=== PATIENT | female | born 1985 | race Caucasian/White ===

== ENCOUNTER 2022-10-25 06:32 | Emergency (ER) | payer OTHER, SELFPAY ==
[2022-10-25 07:10] VITALS: BP 125/81; PULSE 71; RESP 18; TEMP 36.8; O2SAT 100; BMI 25.7
--- NOTE | 2022-10-25 07:47 | ED.FEMALEGU ---
HPI - Female Genitourinary General Chief complaint: Urogenital-Female Stated complaint: pain in pelvic area thinks IUD shifted Time Seen by Provider: 10/25/22 07:27 Source: patient Mode of arrival: Ambulatory Limitations: no limitations History of Present Illness HPI Narrative: Patient is a 37-year-old healthy female, she awoke this morning with suprapubic pain extending into the pelvic floor, labia region. She has an IUD in place, the current 1 has been there for years. She would similar pain with her prior IUD. She is no pelvic discharge, no nausea, vomiting or diarrhea. She is no vaginal bleeding, she does not normally have menstrual cycles with the IUD in place. She denies dysuria. is seemingly quite unlikely. The pain does not radiate to her back. She is no chronic medical problems. She is no history of ovarian problems. She is on no prescription medications. Related Data Previous Rx's Medication Instructions Recorded doxycycline hyclate 100 mg capsule 100 mg PO BID 10 days #20 caps 10/25/22 tramadol 50 mg tablet 50 mg PO Q6H PRN pain #20 tabs 10/25/22 Allergies Allergy/AdvReac Type Severity Reaction Status Date / Time No Known Drug Allergies Allergy Verified 10/25/22 11:34 Review of Systems Review of Systems ROS Unobtainable: All systems reviewed & are unremarkable except as noted in HPI and below Constitutional Constitutional: Denies body ache(s), Denies chills, Denies fever(s) and Denies headache(s) ENT Ears, Nose, Mouth, and Throat: Denies headache(s) Cardiovascular Cardiovascular: Denies chest pain and Denies dyspnea Respiratory Respiratory: Denies cough and Denies dyspnea Genitourinary Genitourinary: Denies dysuria, Denies nocturia, Denies urinary urgency and Denies vaginal discharge Musculoskeletal Musculoskeletal: Denies back pain Integumentary/Breasts Skin/Breast: Denies rash Neurologic Neurologic: Denies headache(s) Patient History Medical History Healthy adult IUD (intrauterine device) in place Substance Use Type: does not use Exam Initial Vital Signs Initial Vital Signs: Vital Signs Temperature 98.3 F 10/25/22 07:10 Pulse Rate 71 10/25/22 07:10 Respiratory Rate 18 10/25/22 07:10 Blood Pressure 125/81 10/25/22 07:10 Pulse Oximetry 100 10/25/22 07:10 Oxygen Delivery Method Room Air 10/25/22 07:10 Const General: cooperative, healthy appearing and other (Appears uncomfortable) Nutritional Appearance: average body habitus [facility] Head: normocephalic and atraumatic GI Inspection: normal to inspection Palpation: soft, No guarding and tender (Mild suprapubic discomfort.) Auscultation: normal bowel sounds External Female Exam: normal external appearance Speculum Exam - Vagina: normal appearance of the vagina, abnormal vaginal discharge ( yellow, creamy cervical discharge.) and not erythematous Bimanual Exam- Vagina & Uterus: uterine size normal, cervical motion tenderness and tender Bimanual Exam- Adnexa, other: normal adnexae Other: IUD strings are seen at the cervical os. Back/Spine/Pelvis Back: No CVA tenderness Course Course Course Narrative: patient appears to have endometritis, seemingly associated with her IUD. STD is not likely. She is in a safe, monogamous relationship. Ultrasound is normal. Strings are noted be appropriately placed on exam. The IUD is identified on ultrasound. She is treated with Rocephin and doxycycline. She is advised to follow up with her doctor in 2-3 weeks. She should return here for increased pain or fever. Orders Ordered: ED Orders 10/25/22 08:21 Urine Microscopic Stat 10/25/22 11:22 US pelvic complete Stat 10/25/22 11:30 BMP [Basic Metabolic Panel] Stat CBC Auto Diff [Complete Blood Count AUTO DIFF] Stat Genital Culture Stat Lactate (Lactic Acid) Stat 10/25/22 11:31 Chlamydia Gonorrhea PCR -URINE Stat Discontinued Medications Ketorolac Tromethamine (Ketorolac 30 Mg/Ml Vial) 30 mg IV NOW ONE Stop: 10/25/22 11:23 Last Admin: 10/25/22 11:34 Dose: 30 mg Documented By: MATIAS Vital Signs Vital signs: Vital Signs - 8 hr 10/25/22 07:10 10/25/22 10:25 Temperature 98.3 F Pulse Rate 71 64 Respiratory Rate 18 14 Blood Pressure 125/81 118/70 Pulse Oximetry 100 100 Oxygen Delivery Method Room Air MDM - Female Genitourinary Lab Data 10/25/22 11:30 10/25/22 11:30 Labs: Lab Results 10/25/22 10/25/22 10/25/22 Range/Units 08:21 11:30 11:30 WBC 6.3 (4.5-11.0) X10^3/uL RBC 4.34 (4.0-5.2) X10^6/uL Hgb 12.7 (12.0-16.0) g/dL Hct 38.3 (36-46) % MCV 88.4 (80-100) fL MCH 29.3 (26-34) PG MCHC 33.1 (30-36) % RDW 13.1 (11.6-14.8) % Plt Count 311 (150-400) X10^3/uL Neut % (Auto) 57.3 (50-75) % Lymph % (Auto) 35.8 (25-40) % [place] % (Auto) 5.5 (3-14) % Eos % (Auto) 0.5 L (2-4) % Baso % (Auto) 0.9 (0-2) % Neut # (Auto) 3600 (6566-8117) /uL Lymph # (Auto) 2200 (2332-0297) /uL [place] # (Auto) 300 (0-900) /uL Eos # (Auto) 0 (0-450) /uL Baso # (Auto) 100 (0-100) /uL Sodium 136 L (137-145) mmol/L Potassium 3.8 (3.4-5.1) mmol/L Chloride 102 (98-107) mmol/L Carbon Dioxide 26 (22-32) mmol/L BUN 11 (7-17) mg/dL Creatinine 0.64 (0.52-1.04) mg/dL Estimated GFR > 60 (>60) mL/min BUN/Creatinine Ratio 17.2 (6-22) Glucose 90 (70-100) mg/dL Lactate (0.7-2.1) mmol/L Calcium 8.8 (8.4-10.2) mg/dL Urine RBC None seen (0-5/HPF) Urine WBC None seen (0-5/HPF) Ur Squamous Epith Cells None seen (0-5/HPF) Urine Bacteria None seen (None) Ur Culture Indicated? Cult not indicated 10/25/22 Range/Units 11:30 WBC (4.5-11.0) X10^3/uL RBC (4.0-5.2) X10^6/uL Hgb (12.0-16.0) g/dL Hct (36-46) % MCV (80-100) fL MCH (26-34) PG MCHC (30-36) % RDW (11.6-14.8) % Plt Count (150-400) X10^3/uL Neut % (Auto) (50-75) % Lymph % (Auto) (25-40) % [place] % (Auto) (3-14) % Eos % (Auto) (2-4) % Baso % (Auto) (0-2) % Neut # (Auto) (4098-9216) /uL Lymph # (Auto) (0934-4383) /uL [place] # (Auto) (0-900) /uL Eos # (Auto) (0-450) /uL Baso # (Auto) (0-100) /uL Sodium (137-145) mmol/L Potassium (3.4-5.1) mmol/L Chloride (98-107) mmol/L Carbon Dioxide (22-32) mmol/L BUN (7-17) mg/dL Creatinine (0.52-1.04) mg/dL Estimated GFR (>60) mL/min BUN/Creatinine Ratio (6-22) Glucose (70-100) mg/dL Lactate 1.1 (0.7-2.1) mmol/L Calcium (8.4-10.2) mg/dL Urine RBC (0-5/HPF) Urine WBC (0-5/HPF) Ur Squamous Epith Cells (0-5/HPF) Urine Bacteria (None) Ur Culture Indicated? Point of Care Testing Test Results Negative Urine Dip Bedside Urine Glucose Negative Bedside Urine Bilirubin - Negative Bedside Urine Ketone +/- 5 Urine Specific [place] 1.025 Bedside Urine Occult Blood - Negative Bedside Urine pH 6.0 Bedside Urine Protein - Negative Bedside Urine Urobilinogen - Negative Bedside Urine Nitrite - Negative Bedside Urine Leukocytes - Negative Esterase Imaging Data Pelvic ultrasound: My Impression: normal uterus. IUD in place. Discharge Plan Departure Patient Disposition: Home Clinical Impression: Acute endometritis, IUD (intrauterine device) in place Instructions: Endometritis Prescriptions: New doxycycline hyclate 100 mg capsule 100 mg PO BID 10 Days Qty: 20 0RF tramadol 50 mg tablet 50 mg PO Q6H PRN (Reason: pain) Qty: 20 0RF Referrals: Yoly French ARNP [Primary Care Provider] - Stand Alone Forms: Patient Portal/API
[2022-10-25 09:26] LABS: Bacteria Urine None Seen; Culture Indicated Urine Cult Not Indicated; RBC Urine None Seen (0-5/HPF); Squamous Epithelial Cell Urine None Seen (0-5/HPF); WBC Urine None Seen (0-5/HPF)
[2022-10-25 10:25] VITALS: BP 118/70; PULSE 64; RESP 14; O2SAT 100
--- NOTE | 2022-10-25 11:22 | DI.US.S_ITS ---
PROCEDURE: US PELVIC COMPLETE INDICATIONS: PAIN; CHECK IUD PLACEMENT TECHNIQUE: Real-time scanning was performed of the pelvic organs, with image documentation. Additional endovaginal scanning was necessary due to incomplete visualization of the adnexal and endometrial structures by transabdominal scanning. COMPARISON: None. FINDINGS: Uterus: Uterus is anteverted and normal in size at 8.6 x 4.5 x 6.3 cm. The myometrium is homogeneous. The endometrium measures 4.4 mm combined thickness. Intrauterine device in good position Ovaries: The right ovary measures 2.4 x 3.8 x 1.8 cm, with a calculated ovarian volume of 8.8 cc. The left ovary measures 2.1 x 4.5 x 2.4 cm, with a calculated ovarian volume of 11.9 cc. The ovaries have a normal sonographic appearance. Less than 12 follicles can be seen in each ovary. No adnexal masses are seen. Other: No pathologic free abdominal or pelvic fluid. IMPRESSION: Intrauterine device in good position Approved by: Gutierrez Roberts M.D. on 10/25/2022 at 12:33
[2022-10-25] MEDS: KETOROLAC 30 MG/ML VIAL IV (11:34)
[2022-10-25 11:41] LABS: Add Manual Diff / Slide Review NO; Basophils Absolute Auto 100 /uL (0-100); Basophils Percent Auto 0.9 % (0-2); Eosinophils Absolute Auto 0 /uL (0-450); Eosinophils Percent Auto 0.5 % (2-4); Hematocrit 38.3 % (36-46); Hemoglobin 12.7 g/dL (12.0-16.0); Lymphocytes Absolute Auto 2200 /uL (1100-4500); Lymphocytes Percent Auto 35.8 % (25-40); Mean Corpuscular HGB Conc 33.1 % (30-36); Mean Corpuscular Hemoglobin 29.3 PG (26-34); Mean Corpuscular Volume 88.4 fL (80-100); Monocytes Absolute Auto 300 /uL (0-900); Monocytes Percent Auto 5.5 % (3-14); Neutrophils Absolute Auto 3600 /uL (1500-7000); Neutrophils Percent Auto 57.3 % (50-75); Platelet Count 311 X10^3/uL (150-400); Red Blood Cell Count 4.34 X10^6/uL (4.0-5.2); Red Cell Distribution Width 13.1 % (11.6-14.8); White Blood Cell Count 6.3 X10^3/uL (4.5-11.0)
[2022-10-25 11:54] LABS: BUN Creatinine Ratio 17.2 (6-22); Blood Urea Nitrogen 11 mg/dL (7-17); Calcium 8.8 mg/dL (8.4-10.2); Carbon Dioxide 26 mmol/L (22-32); Chloride 102 mmol/L (98-107); Estimated Glomerular Filt Rate > 60 mL/min (>60); Glucose 90 mg/dL (70-100); HEMOLYSIS < 15 (0-50); Lactate (Lactic Acid) 1.1 mmol/L (0.7-2.1); Potassium 3.8 mmol/L (3.4-5.1); Sodium 136 mmol/L (137-145)
[2022-10-25 12:59] VITALS: PULSE 66; O2SAT 100
[2022-10-25] MEDS: DOXYCYCLINE HYCLATE 100 MG TABLET PO (12:59)
[2022-10-25 13:00] VITALS: BP 122/77; PULSE 74; O2SAT 100
[2022-10-25] MEDS: cefTRIAXone 1,000 MG in SODIUM CHLORIDE 0.9% 100 ML 200 MG IV (13:00)
[2022-10-25 18:32] LABS: Urine N gonorrhoeae NOT DETECTED
[2022-10-25 18:40] LABS: Urine Chlamydia NOT DETECTED
== END 2022-10-25 13:40 | disposition home or self-care (01) ==
PROVIDERS: Emergency Provider Emergency Medicine; PCP Registered Nurse
DX: N71.0 Acute inflammatory disease of uterus (principal); Z97.5 Presence of (intrauterine) contraceptive device
CPT/HCPCS: 36415; 76830; 76856; 80048; 81003; 81015; 81025; 83605; 85025; 87070; 87205; 87491; 87591; 93975; 96365; 96375; 99284; J0696; J1885

== ENCOUNTER → 2025-02-17 13:01 | Outpatient (CLI) | payer OTHER, SELFPAY ==
[2025-02-17 14:18] LABS: HCG Quantitative /Beta subunit 6.46 mIU/mL
--- NOTE | 2025-08-31 13:27 | DIET.OUTPTC ---
Dietary Outpatient Consult Consult Date:02/17/25 Assessment:?40 y F referred to dietitian for Body mass index [BMI] 27.0-27.9, adult Pt is 5 weeks and presents of general education for healthy dietary eating patterns. Notes lower appetite recently since . Is gluten/dairy sensitive and avoids or has diarrhea and abd pain. GI symptoms: 2-4 BMs daily 30-45 minutes after eating type 3-4 on bristol stool chart Diet Recall: 11am-smoothies (almond/coconut milk, perez seeds, pb, blueberries and strawberries, spinach/kale, whey protein powder 1230-1p- eggs or ham or chk or turkey 4-6 oz Snack-walnuts/almonds, berries, trail mix juiced veggies and fruits (apples/celery/kale/carrots/watermelon) 8 oz or more [id number]/chicken/turkey 4-6 oz with veggies and sauce cottage cheese blend desserts- (cottage cheese, maple syrup, pb, vanilla) 8 oz takes daily Fluids:juice/smoothie/non-diary milk/water 3-5 times a day going to gym for 1 hr Nutrition Diagnosis:? Food nutrition related knowledge deficit r/t looking for review of nutritional intake aeb pt report Interventions:? Discussed and provided appropriate resources on the following: -Reviewed diet recall -Reviewed nutrition during -Reviewed micro-nutrients and needs during -Reviewed macro-nutrient needs and carb needs during Goals: -Consider gluten free carb source at lunch and dinner 2/3 c -Focus on adequate intake from variety of different food sources, smaller frequent meals if having more nausea/lower appetite to meet nutrition needs Monitoring/Evaluations:? F/u prn Electronically Signed by: Lavern Paul Clinical Dietitian [address] [id number]
== END ==
PROVIDERS: Family Medicine; PCP Registered Nurse; Referring Provider Registered Nurse
DX: Z34.91 Encounter for supervision of normal pregnancy, unspecified, first trimester (principal); Z71.3 Dietary counseling and surveillance; Z3A.01 Less than 8 weeks gestation of pregnancy
CPT/HCPCS: 36415; 84702; 97802

== ENCOUNTER → 2025-04-03 12:00 | Outpatient (CLI) | payer OTHER, SELFPAY ==
[2025-04-03 14:44] LABS: HCG Quantitative /Beta subunit 38751 mIU/mL
== END ==
PROVIDERS: PCP Registered Nurse; Referring Provider Obstetrics & Gynecology; Visit Provider Obstetrics & Gynecology
DX: O20.9 Hemorrhage in early pregnancy, unspecified (principal)
CPT/HCPCS: 36415; 84702

== ENCOUNTER → 2025-04-06 09:19 | Outpatient (CLI) | payer OTHER, SELFPAY ==
[2025-04-06 11:50] LABS: HCG Quantitative /Beta subunit 63241 mIU/mL
== END ==
PROVIDERS: PCP Registered Nurse; Referring Provider Obstetrics & Gynecology; Visit Provider Obstetrics & Gynecology
DX: O20.9 Hemorrhage in early pregnancy, unspecified (principal)
CPT/HCPCS: 36415; 84702

== ENCOUNTER → 2025-04-07 15:44 | Outpatient (CLI) | payer OTHER, SELFPAY ==
--- NOTE | 2025-04-07 15:47 | DI.US.S_ITS ---
PROCEDURE: US OB <= 14 WEEKS FETUS INDICATIONS: Bleeding early /dating US OUTSIDE/PRIOR DATING DATA: Last menstrual period (LMP): Unknown. LMP-based estimated date of delivery (SHAHRIAR): Not applicable. First dating scan (date and location): Today's exam. Estimated date of delivery (SHAHRIAR) from first dating scan: 11/27/2025. TECHNIQUE: Real-time scanning was performed of the fetus and maternal pelvic organs, with image documentation. Endovaginal scanning was also performed to better visualize the fetus and maternal ovaries. COMPARISON: None. FINDINGS: Single living intrauterine present. Yolk sac is visualized. Perigestational hemorrhage measuring 2.1 x 1.5 x 0.8 cm. Embryo: Present, measuring 0.7 cm, corresponding to 6 weeks 4 days. Heart rate: 121 beats per minute. Maternal organs: Ovaries are unremarkable. IMPRESSION: Single Living intrauterine at six weeks 4 days, SHAHRIAR of 11/27/2025. Small subchorionic hemorrhage measuring 2.1 x 1.5 x 0.8 cm. We strive to produce accurate, complete, and clear reports of imaging services. To assist us in improving patient care, this report was composed using standard report templates and voice recognition software. Therefore, it may contain abnormal punctuation, insertions and/or omissions. Occasional wrong-word or sound-alike substitutions may occur. Though we review the report and make efforts to correct it, we do recommend that the report be read carefully in proper context to recognize any text inaccuracies. Dictated by: Sudhakar Beckford M.D. on 04/08/2025 at 11:59 Approved by: Sudhakar Beckford M.D. on 04/08/2025 at 12:13
== END ==
PROVIDERS: PCP Registered Nurse; Referring Provider Obstetrics & Gynecology; Visit Provider Obstetrics & Gynecology
DX: O20.9 Hemorrhage in early pregnancy, unspecified (principal); Z3A.01 Less than 8 weeks gestation of pregnancy
CPT/HCPCS: 76801; 76817

== ENCOUNTER 2025-05-22 08:08 | Day surgery (SDC) | payer OTHER, SELFPAY ==
[2025-05-19 12:24] VITALS: BMI 29.0
--- NOTE | 2025-05-22 | DI.US.S_ITS ---
PROCEDURE: US PELVIC COMPLETE INDICATIONS: Confirm presence of retained POCs prior to evacuation TECHNIQUE: Real-time scanning was performed of the pelvic organs, with image documentation. Additional endovaginal scanning was necessary due to incomplete visualization of the adnexal and endometrial structures by transabdominal scanning. COMPARISON: [facility], US, US PELVIC COMPLETE, 05/12/2025, 8:45. FINDINGS: Uterus: 8.7 x 5.7 x 6.8 cm. Thickened endometrium with internal heterogeneity. Total thickness is 21 mm. There is a 2.7 x 2.3 heterogeneous solid region with internal vascularity. Ovaries: Right ovary is nonenlarged at 9 mL. Left ovary is nonenlarged at 6 mL. Other: No pathologic free fluid IMPRESSION: Thickened endometrium with internal heterogeneity. Focal solid region measuring 2.7 x 2.3 cm with internal vascularity, probably retained products. Consider follow-up after clinical treatment to ensure complete resolution Dictated by: John Goff M.D. on 05/22/2025 at 11:01 Approved by: John Goff M.D. on 05/22/2025 at 11:02
--- NOTE | 2025-05-22 | PATH_ITS ---
[facility] Accession Number: [id number] No. of containers..01 Tissue . 01 Material submitted: . product of conception - PRODUCTS OF CONCEPTION . 01 Diagnosis: PRODUCTS OF CONCEPTION, CURETTINGS: Decidualized endometrium with extensive degenerative changes and rare possible chorionic villi, please see comment. Negative for gestational trophoblastic disease. MRV 06/05/2025 1609 Local . 01 Comment: The findings are compatible with retained products of conception; however, given the presence of rare possible chorionic villi, correlation with imaging studies and serial HCG serum levels will be required to support intrauterine . . . 01 Electronically signed: . Maryjane Traylor MD, Pathologist NPI- [id number] . 01 Gross description: . The specimen is received in formalin with two patient identifiers and retained products of conception per requisition, and consists of a 3.0 x 2.5 x 1.0 cm aggregate of landers-brown, fibromembranous tissue admixed with clotted blood. No villous tissue or tissue is appreciated. The specimen is entirely submitted in cassettes A1-A3. ([id number]) /MRV 05/26/2025 1821 Local . 01 Pathologist provided ICD-10: O02.1 . 01 CPT . 743063 Specimen Comment: A courtesy copy of this report has been sent to [phone] Performed at: [address] [facility] [address], [place], [place] [id number] MD Herbert Spencer MD Phone: [phone]
[2025-05-22 08:46] VITALS: BP 126/86; PULSE 69; RESP 16; TEMP 36.8; O2SAT 100
[2025-05-22] MEDS: LACTATED RINGERS 1,000 ML 42 ML IV (08:51)
[2025-05-22] MEDS: ACETAMINOPHEN 325 MG TABLET 975 MG PO (08:52)
--- NOTE | 2025-05-22 09:21 | SUR.OPER ---
Lithotomy on padded OR bed, head on pillow, arms secured on padded arm boards at <90 degrees abduction. Legs secured in padded yellow fins stirrups.
--- NOTE | 2025-05-22 10:03 | PM.PREOP ---
Pre-operative Note COVID-19 COVID-19 status: Not tested Interval Note History & Physical reviewed/Exam performed by Physician: Yes Changes to H&P: No
--- NOTE | 2025-05-22 12:09 | PM.GYNOP.1 ---
Operative Date/Time/Diagnoses Date of procedure: 05/22/25 Time of procedure: 11:30 Pre-op diagnosis: Retained products of conception status post spontaneous miscarriage Post-op diagnosis: same Procedure & Clinicians Procedure: Procedures Operation Date: 05/22/25 09:30 Actual Procedure Side Surgeon p Hysteroscopy, MyoSure resection of retained products of conception with suction dilation and curettage Ervin Cheung MD Indications: Fabby is a 2 para 0 ab 2 who experienced spontaneous incomplete ab managed with misoprostol. Unfortunately evacuation was incomplete and she has the persistent presence of retained POCs which are now being removed surgically via hysteroscopy/MyoSure and possible suction curettage if necessary to completely evacuate the uterus. Surgeon: Ervin Cheung Anesthesia Type: General Operative Notes Findings: Clearly visible retained POCs in the uppermost portion of the endometrial cavity, all of which were removed during the course of the procedure. Closure Type: not applicable Specimen(s): other and products of conception Applied: none and other (IM Pitocin 10 units) Estimated blood loss (mL): 50 Blood products transfused: none Complications: none Post-operative Condition: stable Disposition: PACU Plan for aftercare: Routine postoperative care with follow-up in 2 weeks or as needed.
[2025-05-22 12:18] VITALS: BP 108/67; PULSE 79; RESP 18; TEMP 36.8; O2SAT 100
[2025-05-22 12:20] VITALS: BP 110/67; PULSE 76; RESP 19; O2SAT 99
[2025-05-22 12:25] VITALS: BP 110/65; PULSE 78; RESP 11; O2SAT 100
[2025-05-22 12:31] VITALS: BP 113/65; PULSE 76; RESP 10; O2SAT 100
[2025-05-22 12:35] VITALS: BP 118/69; PULSE 72; RESP 24; O2SAT 99
== END 2025-05-22 13:36 | disposition home or self-care (01) ==
PROVIDERS: Obstetrics & Gynecology; PCP Registered Nurse; Referring Provider Obstetrics & Gynecology; Visit Provider Obstetrics & Gynecology
PROC: 0UDB8ZZ Extraction of Endometrium, Via Natural or Artificial Opening Endoscopic (ICD-10-PCS; CPT 58558; principal; 2025-05-22 09:30)
DX: O03.4 Incomplete spontaneous abortion without complication (principal)
CPT/HCPCS: 59812; 76830; 76856; J0689; J1100; J2250; J2704; J3010; J7120

== ENCOUNTER → 2025-07-06 18:58 | Outpatient (CLI) | payer OTHER, SELFPAY ==
--- NOTE | 2025-07-06 18:59 | DI.MRI.S_ITS ---
PROCEDURE: MR BRAIN (IAC) WWO CON INDICATIONS: hearing loss TECHNIQUE: Noncontrast sagittal T1 spin echo, axial FLAIR, axial gradient echo, axial diffusion and ADC through the brain. Axial thin-slice 3D CISS, coronal TruFISP, axial T1 spin echo with fat saturation through the internal auditory canals. After the administration of contrast, thin slice axial and coronal T1 spin echo with fat saturation through the internal auditory canals, and axial and coronal and sagittal T1 spin echo with fat saturation through the brain. COMPARISON: None. FINDINGS: Image quality: Excellent. Cerebellopontine angles: No cerebellopontine angle masses. Inner ear structures appear normally formed. No suspicious enhancement in the internal auditory canal or along the course of the 7th cranial nerve. CSF spaces: Ventricles are normal in size and shape. No extra-axial fluid collections. Basal cisterns are patent. Brain: No intracranial bleeds or mass effects. [place]-white matter interface is intact. No abnormal intracranial enhancement. Diffusion weighted images demonstrate no acute ischemic insults. Brainstem appears normal. Normal intravascular flow voids are present. Skull and face: Calvarial marrow signal is normal. Orbits appear normal. Sinuses: Sinuses and mastoids are clear. IMPRESSION: No cause for patient's symptoms is identified. Normal appearance of the internal auditory canals and cerebellopontine angles. No acute intracranial abnormalities or abnormal intracranial enhancement. Dictated by: Сергей Mcclendon M.D. on 07/07/2025 at 10:27 Approved by: Сергей Mcclendon M.D. on 07/07/2025 at 10:29
== END ==
PROVIDERS: PCP Registered Nurse; Referring Provider Otolaryngology; Visit Provider Otolaryngology
DX: H90.3 Sensorineural hearing loss, bilateral (principal); H93.12 Tinnitus, left ear
CPT/HCPCS: 70553; A9579